=== PATIENT | female | born 1945 | race Caucasian/White ===

== ENCOUNTER → 2024-08-28 | Outpatient (CLI) | payer MEDICARE, OTHER, SELFPAY ==
[2024-08-28 11:28] LABS: Basophils # (Auto) 0.1 Thou/mm3 (0.0-0.2); Basophils % (Auto) 1 % (0-2.5); Eosinophils # (Auto) 0.2 Thou/mm3 (0.0-0.5); Eosinophils % (Auto) 3 % (0-10); Hematocrit 41.6 % (36.0-46.0); Hemoglobin 13.6 g/dL (12.0-16.0); Immature Granulocytes % (Auto) 0 % (0-0); Immature Granulocytes Auto 0.04 Thou/mm3 (0.00-0.00); Lymphocytes # (Auto) 1.5 Thou/mm3 (1.0-4.8); Lymphocytes % (Auto) 15 % (10-50); Mean Corpuscular HGB Conc 32.7 g/dl (31.0-37.0); Mean Corpuscular Hemoglobin 30.4 pg (25.0-35.0); Mean Corpuscular Volume 93 fL (80-100); Monocytes # (Auto) 0.8 Thou/mm3 (0.0-0.8); Monocytes % (Auto) 8 % (0-12); Neutrophils % (Auto) 74 % (37-80); Nucleated Red Blood Cell % 0 /100 WBC (0); Platelet Count 230 Thou/mm3 (140-440); RDW Standard Deviation 44.4 fL (36.4-46.3); Red Blood Count 4.47 Miln/mm3 (4.00-5.20); White Blood Count 9.6 Thou/mm3 (3.6-11.0)
[2024-08-28 11:46] LABS: Vitamin D 25 Hydroxy Total 44.3 ng/mL (7.3-40.2)
[2024-08-28 12:16] LABS: Alanine Aminotransferase 23 U/L (10-49); Albumin, Serum 4.5 gm/dL (3.4-4.8); Albumin/Globulin Ratio 2.1 (1.2-2.2); Alkaline Phosphatase 131 U/L (46-116); Anion Gap 8 (7-16); Aspartate Amino Transferase 20 U/L (0-34); BUN/Creatinine Ratio 14 Ratio (12-20); Blood Urea Nitrogen 15 mg/dL (9-23); Calcium 10.8 mg/dL (8.3-10.6); Calcium (Corrected) 10.8 mg/dL (8.5-10.1); Carbon Dioxide 29.6 mMol/L (20.0-31.0); Chloride 105 mMol/L (98-107); Creatinine (Component) 1.1 mg/dL (0.6-1.3); Free T4 (Free Thyroxine) 1.03 ng/dL (0.89-1.76); Globulin 2.1 gm/dL (2.3-3.5); Glucose 112 mg/dL (74-106); Osmolality,Calculated 286 (275-295); Potassium 4.7 mMol/L (3.4-5.1); Sodium 143 mMol/L (136-145); Thyroid Stimulating Hormone 3.05 uIU/mL (0.55-4.78); Total Protein 6.6 gm/dL (5.7-8.2); eGFR 52 See Note
[2024-08-28 14:27] LABS: Glucose Estimated Average 105 mg/dL (80-131); Hemoglobin A1C 5.3 % Hgb (4.8-6.0)
[2024-08-28 15:18] LABS: Cardiac Risk Estimate 2.1 RATIO (3.7-5.6); Cholesterol 116 mg/dL (132-200); HDL Cholesterol 54 mg/dL (40-60); LDL Cholesterol,Calculated 34 mg/dL (0-130); Triglycerides 138 mg/dL (30-150); Uric Acid 6.8 mg/dL (3.1-7.8)
== END | disposition home or self-care (01) ==
LOC: COPL 10:20
PROVIDERS: PCP Internal Medicine; Referring Provider Internal Medicine; Visit Provider Internal Medicine
DX: I11.0 Hypertensive heart disease with heart failure (principal); E11.9 Type 2 diabetes mellitus without complications; E55.9 Vitamin D deficiency, unspecified; E78.2 Mixed hyperlipidemia; E03.9 Hypothyroidism, unspecified
CPT/HCPCS: 36415; 80053; 80061; 82306; 83036; 84439; 84443; 84550; 85025

== ENCOUNTER 2024-11-12 23:18 | Inpatient (IN) | payer MEDICARE, OTHER, SELFPAY ==
[2024-11-12 23:19] VITALS: BMI 34.3
--- NOTE | 2024-11-12 23:21 | EKG_ITS ---
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
[2024-11-12 23:42] VITALS: BP 164/89; PULSE 92; RESP 20; TEMP 37.4; O2SAT 93
[2024-11-13] VITALS (15 sets, daily range): BP systolic 134–207; BP diastolic 78–117; PULSE 84–110; RESP 16–98; TEMP 36.7–38.5; O2SAT 94–98
--- NOTE | 2024-11-13 | XR_ITS ---
Examinations: MRI Brain without intravenous contrast. MRA brain without intravenous contrast. MRA carotids without intravenous contrast 3-D vascular reconstructions Date and time of exam: November 13, 2024 1003 hours INDICATIONS: Onset slurred speech facial numbness beginning today Technique: Multiple axial and sagittal images of the brain have been obtained MRA brain carotid images without contrast obtained, including 3-D postprocessing, vascular maximum intensity projection images Findings: Sellaturcica is not enlarged. The optic chiasm and infundibular stalk are not remarkable. Prepontine and interpeduncular cisterns are not enlarged. No localized enlargement of the medulla or chris. Fourth ventricle and cerebellar tonsils normal in position. Subacute hemorrhage is not seen. Fourth ventricle is midline. Mass in the cerebellopontine angle region is not evident. 7th and 8th nerve complexes exhibits symmetry. Globes are symmetrical with no retro-orbital mass. Increased white matter signal prominent Diffusion-weighted images demonstrate no focus of restricted diffusion Mass-effect upon the ventricular system is not identified. MRA carotid images degraded by patient motion. MRA brain images no large vessel occlusions Impression: Negative for acute hemorrhage mass effect or midline shift Old infarct right caudate nucleus Prominent chronic microvascular white matter change No acute infarct
--- NOTE | 2024-11-13 00:12 | XR_ITS ---
Examination: CT brain head without contrast. 2-D sagittal coronal reconstructions Date and time of exam:16,025 at 0109 hrs. Comparison: May 24, 2021 Indication: Dizziness shortness of breath unsteady gait today CTDI: vol (mGy):44.2 DLP: (mGycm):887 Technique: Multiple CT axial sections of the brain have been obtained, 5 mm slice thickness. Contrast has not been administered. 2-D sagittal, coronal reconstructions have been obtained Low dose protocols were performed. One or more of the following dose reduction techniques were used; automated exposure control, adjustment of the mA and/or KV according to patient size, use of iterative reconstruction technique. Findings: No significant ventricular enlargement. Intra-axial or extra-axial hemorrhage density is not seen. No mass effect or midline shift Basal cisterns are not remarkable. Fourth ventricle is midline. Cranial vault intact. Impression: Negative for acute hemorrhage, mass effect or midline shift Consider brain MRI MRA without contrast, stroke protocol, follow-up
--- NOTE | 2024-11-13 00:12 | XR_ITS ---
Examination: PA chest single view TECHNIQUE: Upright PA chest single view Exam date and time: November 13, 2024 at 0034 hours INDICATIONS: Coughing several days. FINDINGS: Normal heart size The lungs are clear. The osseous structures are intact IMPRESSION: No active disease
--- NOTE | 2024-11-13 00:14 | PD.EDRME ---
Rapid Medical Screening Exam [facility] Arrival date/time: 11/12/24 23:18 79F with history of CVA (2014; residual L-sided weakness) and HTN presents to ED with several days of cough and SOB. Today, patient took some promethazine for cough and felt increased dizziness and facial flushing. Patient states symptoms are getting better. Patient also states this feels different than when she had her CVA. Chief Complaint: Dizziness Vital signs: Vital Signs Temperature 99.4 F 11/12/24 23:42 Pulse Rate 92 11/12/24 23:42 Respiratory Rate 20 11/12/24 23:42 Blood Pressure 164/89 H 11/12/24 23:42 Pulse Oximetry (%) 93 L 11/12/24 23:42 Oxygen Delivery Method Room Air 11/12/24 23:42
--- NOTE | 2024-11-13 00:52 | PD.EDDIZZY ---
ED Dizzyness RME/HPI General Chief Complaint: Dizziness Stated Complaint: COUGH/DIZZINESS/ SOB Time Seen by Provider: 11/13/24 00:46 Arrival date/time: 11/12/24 23:18 RME / HPI RME / HPI Narrative: 11/12/24 23:18 79F with history of CVA (2014; residual L-sided weakness) and HTN presents to ED with several days of cough and SOB. Today, patient took some promethazine for cough and felt increased dizziness and facial flushing. Patient states symptoms are getting better. Patient also states this feels different than when she had her CVA. Dr. Espinoza?s Main ED Evaluation: 79yo female with a history of CVA w/ residual left-sided weakness, HTN, HLD presents to the ED for a cheief complaint of a cough x Sunday. Patient states she's had a cough since Sunday, reporting she took promethazine. She states that after she took it, she started having facial numbness and dizziness. Patient denies any chest pain, shortness of breath, N/V/D or any other associated symptoms. Son at bedside notes the patient started having slurred speech, but is not sure if it is due to the patient having another stroke or if it's due to her being sleepy. Related Data Home Medications ?Medication ?Instructions ?Recorded ?Confirmed acetaminophen 325 mg tablet 650 mg PO Q12H Arthritis 10/13/21 10/17/21 (Tylenol) allopurinol 100 mg tablet 100 mg PO QDAY 10/13/21 10/17/21 amlodipine 5 mg tablet 5 mg PO QDAY 10/13/21 10/17/21 aspirin 81 mg tablet,delayed 81 mg PO DAILY 10/13/21 10/17/21 release atorvastatin 20 mg tablet 20 mg PO QPM 10/13/21 10/17/21 benazepril 20 mg tablet 20 mg PO QDAY 10/13/21 10/17/21 duloxetine 60 mg capsule,delayed 60 mg PO QDAY 10/13/21 10/17/21 release metoprolol succinate 100 mg 100 mg PO QDAY 10/13/21 10/17/21 tablet,extended release 24 hr famotidine 20 mg tablet 20 mg PO QDAY 10/17/21 10/17/21 Allergies Allergy/AdvReac Type Severity Reaction Status Date / Time No Known Allergies Allergy Verified 10/17/21 07:38 Review of Systems Review of Systems Systems Reviewed: All systems reviewed, normal except as documented Past Medical History Past Medical History CARDIAC: Positive Cardiac Disorders, Cardiac Arrhythmia (skipping a beat), Atrial Fibrillation, Hypercholesterolemia and Hypertension; Negative Congestive Heart Failure RESPIRATORY: Positive Bronchitis (x 1 month); Negative Chronic Obstructive Pulmonary Disease (COPD) GASTROINTESTINAL: Negative Gastrointestinal Disorders GENITOURINARY: Negative Genitourinary Disorders or Renal Disease REPRODUCTIVE: Positive Previous Pregnancies MUSCULOSKELETAL: Positive Arthritis and Fractures (tail bone FX) ENDOCRINE: Negative Endocrine Disorders, Diabetes Mellitus Type 1 or Diabetes Mellitus Type 2 HEMATOLOGIC: Negative Blood Disorders PSYCHO/SOCIAL: Positive Depression and Anxiety OTHER HISTORY: Positive Falls, Radiation Therapy (nose carsinoma) and Cancer (nose basal cell carsinoma); Negative Autoimmune Disease Family History FAMILY HISTORY: Positive Family Cardiac Disorders (Dad), Family Cancer (mother) and Family Surgery; Negative Family Psychiatric Problems, Family Respiratory Disorders, Family Gastrointestinal Problems or Family Anesthesia Reaction Surgical History SURGICAL: Positive Nose Surgery Social History SMOKING STATUS: Never smoker ED Exam Narrative Physical exam: GENERAL APPEARANCE: alert and oriented x 4, well-developed, well-nourished, no acute distress VITALS: All vitals were reviewed and the pulse ox is 93% on room air, which is normal according to my interpretation. HEENT: Normocephalic, atraumatic; pupils equal, round, reactive to light; EOMI; mucous membranes pink, moist; oropharynx clear NECK: Supple LUNGS: CTABL; no wheezes, no rales, no rhonchi HEART: Regular rate, regular rhythm; normal S1, S2; no murmurs ABDOMEN: non distended; normal BS; soft, no tenderness, no guarding, no rebound; no masses, no organomegaly, no hernia BACK: no CVA tenderness EXTREMITIES: atraumatic; no edema NEUROLOGIC: awake; alert and oriented x4; cranial nerves II-XII grossly intact; no focal sensory or motor deficits; LUE drift; mild dysarthria PSYCHIATRIC: appropriate mood and affect SKIN: warm, dry, normal color; no rashes Course Course Course Narrative: 0139: Stroke alert initiated. Quality Measures none Orders Category Date Time Status Bedside Blood Glucose NOW Care 11/13/24 01:44 Active Bedside COVID-19 Antigen Test NOW Care 11/13/24 00:12 Active Bedside Influenza A&B Antigen Test NOW Care 11/12/24 23:45 Completed Foot Cutter NOW Care 11/13/24 01:44 Active Continuous Pulse Oximetry NOW Care 11/13/24 01:44 Completed EKG (ED ONLY) *Do not use* NOW Care 11/12/24 23:21 Completed In and Out Catheter NEEDED Care 11/13/24 01:44 Active Insert IV NOW Care 11/13/24 01:44 Active NIH Stroke Scale now Care 11/13/24 01:44 Active NPO NOW Care 11/13/24 01:44 Active Neuro Check Q1HR Care 11/13/24 01:44 Active Nurse Swallow Screen x1 Care 11/13/24 01:44 Active Consult to Neurology / Tele-Neurology Routine Cons 11/13/24 01:[address] angio stroke protocol Stat Exams 11/13/24 01:[address] head/brain wo con Stat Exams 11/13/24 00:12 Taken EKG (ED Only) Stat Exams 11/12/24 23:21 Draft XR chest 1V portable Stat Exams 11/13/24 00:12 Taken B-Type Natriuretic Peptide Stat Lab 11/13/24 00:48 Completed CBC Stat Lab 11/13/24 00:48 Completed Comprehensive Metabolic Panel Stat Lab 11/13/24 00:48 Completed Drug Screen,Urine Stat Lab 11/13/24 01:44 Ordered Magnesium Stat Lab 11/13/24 00:48 Completed Partial Thromboplastin Time Stat Lab 11/13/24 00:48 Received Prothrombin Time with INR Stat Lab 11/13/24 00:48 Received Troponin I Stat Lab 11/13/24 00:48 Completed Urinalysis Stat Lab 11/13/24 00:45 Completed Urine Culture Stat Lab 11/13/24 01:44 Ordered cefTRIAXone [Rocephin] 1,000 mg Med 11/13/24 01:48 Discontinued SODIUM CHLORIDE 0.9% (Popper) [Ns 0.9% (P)] 50 ml IV X1 hydrALAZINE INJ [Apresoline Inj] Med 11/13/24 01:47 Discontinued 10 mg IV X1 ONE Vital Signs Vital signs: Vital Signs Temperature 99.4 F 11/12/24 23:42 Pulse Rate 92 11/12/24 23:42 Respiratory Rate 20 11/12/24 23:42 Blood Pressure 164/89 H 11/12/24 23:42 Pulse Oximetry (%) 93 L 11/12/24 23:42 Oxygen Delivery Method Room Air 11/12/24 23:42 Dizziness MDM Narrative [facility] Narrative:: Scribe Attestation: 11/13/24 Emilie Galvan am scribing for and in the presence of Dr. Espinoza. Patient data External records reviewed:: [facility] previous records (Per chart review, patient has no relevant previous ED visits.) Clinical information provided by:: patient Social determinants that could affect healthcare access:: none Patient has the following chronic illnesses:: aFib, HTN How is presenting disease/condition affected by chronic disease/condition?: caused by Evaluation data The following diagnostics were reviewed and interpreted by me:: lab results, radiology exam(s) and EKG tracing(s) Lab and/or radiology exams considered but not ordered:: none Interpretation Summary: Bedside COVID and Influenza are negative, CBC is normal, CMP is normal, UA is unremarkable, according to my interpretation. CXR shows normal cardiac silhouette, normal sharp diaphragmatic edge, no infiltrates, normal costophrenic angles, according to my interpretation. EKG done at 2340, NSR, rate of 92, left axis deviation, no ectopy, LVH, generalized ST abnormalities, no STEMI, according to my interpretation. CT scan of the head without intravenous contrast (axial sections with sagittal and coronal reformats) November 13, 2024 0109 hours Clinical history: Dizziness. No prior study is available for comparison. Findings: There is no evidence of intracranial hemorrhage, mass effect or midline shift. There is an old lacunar infarct in the right basal ganglia. There are periventricular white matter hypodensities, compatible with chronic small vessel ischemia. The CSF spaces are prominent consistent with volume loss. There is atheromatous calcification of the intracranial arteries. The calvarium is unremarkable. The mastoid air cells and the visualized paranasal sinuses are clear. Impression: No evidence of intracranial hemorrhage, mass effect or midline shift. Periventricular chronic small vessel ischemia, chronic infarct and volume loss. Other findings as described above. This report has been electronically signed by: Macho Serra MD. Medications / Prescriptions Medications or Prescriptions considered but not ordered:: none Medication administrations:: Medication Administration History Discontinued Medications Hydralazine HCl (Hydralazine Inj 20 Mg/Ml Vial) 10 mg IV X1 ONE Stop: 11/13/24 01:48 Last Admin: 11/13/24 02:22 Dose: 10 mg Documented By: BESSY Ceftriaxone Sodium 1,000 mg/ (Sodium Chloride) 50 mls @ 100 mls/hr IV X1 ONE Stop: 11/13/24 02:17 Last Admin: 11/13/24 02:43 Dose: 100 mls/hr Documented By: ESTRELLITA see above Consultations Consultation(s) initiated? (list below): Yes Consultation #1 (Physician, Specialty, Details): Discussed case with [Dr. Ruvalcaba] from [teleneurology] regarding [consultation]. Discussed patients ED course, exam findings, labs, and radiology results. Does not feel the patient's symptoms are due to a stroke, therefore, patient is not a tPA candidate. Does recommend MRI to determine etiology of dysarthria. Time: 02:12 Consultation #2 (Physician, Specialty, Details): Discussed case with [Dr. Forbes, attending Dr. Moore] from Hospitalist service regarding admission. Discussed patients ED course, exam findings, labs, and radiology results. The Hospitalist [agrees] to accept the patient for admission. Time: 03:05 Diagnosis Dizziness Differential Diagnosis: other (adverse medication reaction, anxiety reaction, CVA, TIA, akasthisia) Most likely diagnosis given after review of the tests above:: see below Admission Indicated Admission indicated?: indicated Admission Request Was there a request for admission?: Yes Admission Attestation Admission request attestation: Discussed case with [] from Hospitalist service regarding admission. Discussed patients ED course, exam findings, labs, and radiology results. The Hospitalist [agrees,declines] to accept the patient for admission. Disposition Plan Disposition Plan: Admit Critical Care Time Critical Care Time Critical Care Time: Yes Total Critical Care Time (min.): 50 Attestation: The high probability of sudden, clinically significant deterioration in the patient?s condition required the highest level of my preparedness to intervene urgently. The services I provided to this patient were to treat and/or prevent clinically significant deterioration. Services included the following: chart data review, reviewing nursing notes and/or old charts, documentation time, instructional consultant collaboration regarding findings and treatment options, medication orders and management, direct patient care, vital sign assessments and ordering, interpreting and reviewing diagnostic studies and lab tests. Aggregate critical care time includes only time during which I was engaged in work directly related to the patient?s care, as described above, whether at bedside or elsewhere in the Emergency Department. It did not include time spent performing other reported procedures or the services of residents, students, nurses or physician assistants. Discharge Plan Plan Patient Disposition: Admit Acute Care w/in Hospital Prescriptions/Referrals Prescriptions/Med Rec: No Action acetaminophen [Tylenol] 325 mg Tablet 650 mg PO Q12H atorvastatin 20 mg Tablet 20 mg PO QPM metoprolol succinate 100 mg Tablet Extended Release 24 Hr 100 mg PO QDAY amlodipine 5 mg Tablet 5 mg PO QDAY allopurinol 100 mg Tablet 100 mg PO QDAY aspirin 81 mg Tablet,Delayed Release (Dr/Ec) 81 mg PO DAILY benazepril 20 mg Tablet 20 mg PO QDAY duloxetine 60 mg Capsule,Delayed Release(Dr/Ec) 60 mg PO QDAY famotidine 20 mg Tablet 20 mg PO QDAY Referrals: Temporary Provider,ED [Physician] - In 1 week Problem List Clinical Impression: Acute UTI, Hypertensive urgency, Acute CVA (cerebrovascular accident) Patient/Caregiver Discharge Instructions Print Language: Finnish Stand Alone Forms: Julienne Award Info., Patient Portal Info Letter
[2024-11-13 00:56] LABS: Collection Type, Urine Clean Catch
[2024-11-13 01:03] LABS: Basophils % (Auto) 1 % (0-2.5); Eosinophils # (Auto) 0.1 Thou/mm3 (0.0-0.5); Eosinophils % (Auto) 1 % (0-10); Hematocrit 42.3 % (36.0-46.0); Hemoglobin 14.1 g/dL (12.0-16.0); Immature Granulocytes % (Auto) 0 % (0-0); Immature Granulocytes Auto 0.01 Thou/mm3 (0.00-0.00); Lymphocytes # (Auto) 0.9 Thou/mm3 (1.0-4.8); Lymphocytes % (Auto) 15 % (10-50); Mean Corpuscular HGB Conc 33.3 g/dl (31.0-37.0); Mean Corpuscular Hemoglobin 30.5 pg (25.0-35.0); Mean Corpuscular Volume 92 fL (80-100); Monocytes # (Auto) 0.9 Thou/mm3 (0.0-0.8); Monocytes % (Auto) 15 % (0-12); Neutrophils # (Auto) 4.1 Thou/mm3 (1.8-7.7); Neutrophils % (Auto) 69 % (37-80); Nucleated Red Blood Cell % 0 /100 WBC (0); Platelet Count 231 Thou/mm3 (140-440); RDW Standard Deviation 46.2 fL (36.4-46.3); Red Blood Count 4.62 Miln/mm3 (4.00-5.20)
[2024-11-13 01:22] LABS: B-Type Natriuretic Peptide 90 pg/mL (0-100)
[2024-11-13 01:23] LABS: Alanine Aminotransferase 23 U/L (10-49); Albumin, Serum 5.2 gm/dL (3.4-4.8); Albumin/Globulin Ratio 2.3 (1.2-2.2); Alkaline Phosphatase 139 U/L (46-116); Anion Gap 10 (7-16); Aspartate Amino Transferase 26 U/L (0-34); BUN/Creatinine Ratio 13 Ratio (12-20); Bilirubin,Total 0.7 mg/dL (0.3-1.2); Blood Urea Nitrogen 15 mg/dL (9-23); Calcium 10.6 mg/dL (8.3-10.6); Calcium (Corrected) 10.6 mg/dL (8.5-10.1); Carbon Dioxide 26.1 mMol/L (20.0-31.0); Chloride 105 mMol/L (98-107); Creatinine (Component) 1.2 mg/dL (0.6-1.3); Estimated Creatinine Clearance 42.2 mL/min (>60); Globulin 2.3 gm/dL (2.3-3.5); Glucose 93 mg/dL (74-106); Magnesium 1.8 mg/dL (1.6-2.6); Osmolality,Calculated 282 (275-295); Potassium 3.8 mMol/L (3.4-5.1); Sodium 141 mMol/L (136-145); Total Protein 7.5 gm/dL (5.7-8.2); Troponin I < 0.020 ng/mL (0.0-0.045); eGFR 46 See Note
[2024-11-13 01:30] LABS: Bacteria,Urine Rare; Bilirubin,Urine Negative (Negative); Blood,Urine Negative (Negative); Clarity,Urine Turbid (Clear/Hazy); Color,Urine Yellow (Lt Yel-Yel); Glucose, Urine Negative (Negative); Hyaline Casts,Urine < 1 /hpf (0-1); Ketones,Urine Trace (Negative); Leukocyte Esterase,Urine Positive (Negative); Nitrite,Urine Negative (Negative); Protein,Urine 2+ (Neg - Trace); RBC,Urine 7 /hpf (0-3); Specific Gravity,Urine 1.031 (1.001-1.035); Squamous Epithelial Cell,Urine 10 /hpf (0-5); WBC,Urine 13 /hpf (0-5)
--- NOTE | 2024-11-13 01:40 | PC.LAC ---
stroke consult Case # [id number]
--- NOTE | 2024-11-13 01:44 | XR_ITS ---
Examination: CTA carotids with intravenous contrast CTA brain, head with intravenous contrast. 2-D sagittal, coronal reconstructions. 3-D reconstructions. Exam date and time: 12/14/2024 0200 hrs. Indications: Dizziness difficulty walking ataxia beginning 5 days ago CTDI: vol (mGy) 11 DLP: (mGycm) 442 Technique: Multiple CTA axial brain, head carotid images post intravenous contrast injection 75 cc, [id number]. 2-D sagittal, coronal reconstructions. 3-D reconstructions, 3-D post processing including vascular maximum intensity projection images. Low dose protocols were performed. One or more of the following dose reduction techniques were used; automated exposure control, adjustment of the mA and/or KV according to patient size, use of iterative reconstruction technique. Findings: Bilateral thyroid nodules, the largest right thyroid 9 mm Partially fluid distended esophagus No thoracic aortic aneurysmal dilatation No filling defects in the visualized pulmonary arteries No significant common carotid carotid bifurcation or internal carotid artery stenoses Minimally dominant right vertebral artery with no critical stenoses No cerebral large vessel arterial occlusions or thrombus Impression: No significant neck arterial stenoses No cerebral large vessel arterial occlusions or thrombus Bilateral thyroid nodules, consider correlation with thyroid sonography follow-up
--- NOTE | 2024-11-13 02:05 | PRELIM_ITS ---
CT scan of the head without intravenous contrast (axial sections with sagittal and coronal reformats) November 13, 2024 0109 hours Clinical history: Dizziness. No prior study is available for comparison. Findings: There is no evidence of intracranial hemorrhage, mass effect or midline shift. There is an old lacunar infarct in the right basal ganglia. There are periventricular white matter hypodensities, compatible with chronic small vessel ischemia. The CSF spaces are prominent consistent with volume loss. There is atheromatous calcification of the intracranial arteries. The calvarium is unremarkable. The mastoid air cells and the visualized paranasal sinuses are clear. Impression: No evidence of intracranial hemorrhage, mass effect or midline shift. Periventricular chronic small vessel ischemia, chronic infarct and volume loss. Other findings as described above. Report Electronically Signed By: Macho Serra 11/13/2024 2:04:09 AM [EST]
--- NOTE | 2024-11-13 02:18 | PD.TNEURO ---
Tele Neuro Consultation Consultation Date 11/13/24 Most Recent Vital Signs Last Vital Signs Temp 98.5 F 11/13/24 01:39 Pulse 95 11/13/24 02:12 Resp 18 11/13/24 01:39 BP 196/89 H 11/13/24 01:39 Pulse Ox 95 11/13/24 01:39 O2 Del Method Room Air 11/13/24 01:39 Consultation Narrative [facility] Tele[facility]rology Consult Services Patient Name:???Jodie Gillespie Date of :???1945 Identification Number:??? Date of Service:???11/13/2024 01:40:11 Diagnosis:?R42 - Dizziness/ Vertigo/ Giddiness Impression: ?79-year-old female presenting in consult for lightheadedness after taking promethazine. Patient is currently hypertensive. Symptoms are likely secondary to hypertension and medication use. However would recommend MRI of the brain without contrast due to reported dysarthria Our recommendations are outlined below. Recommendations: ? Stroke/Telemetry Floor ? Neuro Checks ? Bedside Swallow Eval ? DVT Prophylaxis ? IV Fluids, Normal Saline ? Head of Bed 30 Degrees ? Euglycemia and Avoid Hyperthermia (PRN Acetaminophen) ? Initiate or continue Aspirin 81 MG daily Sign Out: ? Discussed with Emergency Department Provider Advanced Imaging:CTA Head and Neck Completed. LVO:No Patient in not a candidate for ANGELICA Metrics: Last Known Well: 11/12/2024 16:00:00 Dispatch Time: 11/13/2024 01:40:11 Arrival Time: 11/12/2024 23:18:00 Initial Response Time: 11/13/2024 01:43:11Symptoms: Dizziness. Initial patient interaction: 11/13/2024 01:45:59 NIHSS Assessment Completed: 11/13/2024 01:48:41Patient is not a candidate for Thrombolytic. Thrombolytic Medical Decision: 11/13/2024 01:48:42Patient was not deemed candidate for Thrombolytic because of following reasons: LKW outside 4.5 hr window. . I personally Reviewed the CT Head and it Showed no acute intracranial abnormalities Primary Provider Notified of Diagnostic Impression and Management Plan on: 11/13/2024 02:16:42 History of Present Illness:Patient is a 79 year old Female. Patient was brought by private transportation with symptoms of Dizziness. 79-year-old female with a history of prior CVA presenting in consult for dizziness. Patient reports being sick with an upper respiratory infection for several days prior to current presentation. At approximately 1600 on 11/12/2024 she took promethazine and then developed lightheadedness and bilateral facial numbness. Family had reported dysarthria however this was not evident at the time of neurology evaluation. ? Past Medical History: ?Hyperlipidemia ?Stroke Medications: No Anticoagulant use? Antiplatelet use:?Yes?Aspirin Reviewed EMR for current medications Allergies:? Reviewed,NKDA Social History: Smoking: No Family History: There is no family history of premature cerebrovascular disease pertinent to this consultation ROS : 14 Points Review of Systems was performed and was negative except mentioned in HPI. Past Surgical History: There Is No Surgical History Contributory To Today?s Visit ? Examination: BP(204/129),?Pulse(90), 1A: Level of Consciousness - Alert; keenly responsive?+ 0 1B: Ask Month and Age - Both Questions Right?+ 0 1C: Blink Eyes & Squeeze Hands - Performs Both Tasks?+ 0 2: Test Horizontal Extraocular Movements - Normal?+ 0 3: Test Visual Brown - No Visual Loss?+ 0 4: Test Facial Palsy (Use Grimace if Obtunded) - Normal symmetry?+ 0 5A: Test Left Arm Motor Drift - No Drift for 10 Seconds?+ 0 5B: Test Right Arm Motor Drift - No Drift for 10 Seconds?+ 0 6A: Test Left Leg Motor Drift - No Drift for 5 Seconds?+ 0 6B: Test Right Leg Motor Drift - No Drift for 5 Seconds?+ 0 7: Test Limb Ataxia (FNF/Heel-Salas) - No Ataxia?+ 0 8: Test Sensation - Normal; No sensory loss?+ 0 9: Test Language/Aphasia - Normal; No aphasia?+ 0 10: Test Dysarthria - Normal?+ 0 11: Test Extinction/Inattention - No abnormality?+ 0 NIHSS Score:?0 Pre-Morbid Modified Allen Scale:4 Points = Moderately severe disability; unable to walk and attend to bodily needs without assistance Spoke with :?Dr. Espinoza This consult was conducted in real time using interactive audio and video technology. Patient was informed of the technology being used for this visit and agreed to proceed. Patient located in hospital and provider located at home/office setting. Patient is being evaluated for possible acute neurologic impairment and high probability of imminent or life-threatening deterioration. I spent total of 35 minutes providing care to this patient, including time for face to face visit via telemedicine, review of medical records, imaging studies and discussion of findings with providers, the patient and/or family. Dr Luis Ruvalcaba [facility] For Inpatient follow-up with [facility] physician please call [facility] at . As we are not an outpatient service for any post hospital discharge needs please contact the hospital for assistance. If you have any questions for the [facility] physicians or need to reconsult for clinical or diagnostic changes please contact us via [facility] at . ?
[2024-11-13] MEDS: hydrALAZINE INJ 20 MG/ML VIAL 10 MG IV (02:22)
[2024-11-13] MEDS: cefTRIAXone 1,000 MG in SODIUM CHLORIDE 0.9% (Popper) 50 ML 100 MG IV (02:43)
[2024-11-13 03:09] LABS: INR 1.1 (0.9-1.3); Partial Thromboplastin Time 27.2 Seconds (22.0-36.0); Prothrombin Time 11.5 Seconds (9.0-12.2)
--- NOTE | 2024-11-13 03:39 | PRELIM_ITS ---
CT angiogram of the head and neck with intravenous contrast (axial sections with sagittal and coronal reformats) November 13, 2024 at 0200 hours Clinical History: Focal neuro deficit, stroke suspected. Comparison: CT of November 13, 2024. Findings: Head: The internal carotid, middle and anterior cerebral arteries are patent bilaterally. The intracranial vertebral arteries are patent. The vertebrobasilar junction, basilar and posterior cerebral arteries are patent. No evidence of large vessel occlusion, critical stenosis or aneurysm. Neck: The aortic arch to the extent visualized as well as the origins of the right brachiocephalic, left common carotid, and left subclavian arteries are patent. The common carotid arteries, carotid bulbs, and internal and external carotid arteries are patent. The origins of the vertebral arteries are unremarkable. The right vertebral artery is dominant. No evidence of vascular occlusion, critical stenosis, dissection or aneurysm. The soft tissues of the neck are unremarkable. The osseous structures are unremarkable. Heterogenous thyroid with multiple hypodense nodules. Impression: Head: No evidence of large vessel occlusion, critical stenosis or aneurysm. Neck: No evidence of vascular occlusion, critical stenosis, dissection or aneurysm. Heterogenous thyroid with multiple hypodense nodules. Please, correlate with thyroid function tests and ultrasound. Report Electronically Signed By: Robinson Knowles 11/13/2024 3:38:55 AM [EST]
--- NOTE | 2024-11-13 05:13 | ESHP_ITS ---
<Statement entered by Erna Moore MD - 11/13/24 05:33> 79-year-old female with multiple comorbidities including hypertension, hyperlipidemia and previous history of ischemic CVA with unknown deficits presented to the ER with slurred speech and facial numbness. Patient states that she was at home when she took promethazine and subsequently started developing facial numbness and slurred speech which prompted a 911 call. In the ER, patient underwent stroke workup including CT head which was negative for any acute intracranial abnormality and teleneurology was consulted who did not recommend tPA however recommended admission for stroke workup. As a result, plan to admit the patient, aspirin, Lipitor, MRI and echocardiogram.I reviewed above note and agree with findings and plans. I have also personally examined the patient with medicine team and went over assessment and plan with medical team including international marketing intern and resident physician. Documentation for date of: 11/13/24 HPI History of Present Illness Chief complaint: Facial numbness and slurred speech for 1 day History of present illness: HPI: A 79-year-old female patient with past medical history of CVA in 2014, hypertension, came to the ED after she experienced numbness on her face associated with difficulty finding words and dizziness. Patient reported that since Sunday this week she started to have congestion, cough, runny nose since that time her symptoms persisted however yesterday morning patient found that she has promethazine at home and her fridge that has been started for the last year she decided to take 1 teaspoon of the syrup. Soon after she took the syrup she started to experience numbness that started in her forehead and worsened to include her whole face. She mentions that she became also generally weak and also became dizzy and was not able to walk. She called her grandson who came and picked her up and brought her to the hospital. As per the ED note her son reported that he noticed that her slurred speech and difficulty finding words seems to be something new and does not seem to be the residual deficit from her previous stroke. Patient denied any tinnitus, drooling of saliva, difficulty swallowing, or focal weakness. ED course: At the ED patient was noticed to have blood pressure 164/89, pulse rate of 92, respiratory rate of 20 saturating 93 on room air. Her labs was only pertinent for serum creatinine of 1.2 with EGFR of 46, troponin and BNP was within normal limits, brain CT scan was negative for any hemorrhage or mass effect consultation to the teleneurologist he recommended to admit the patient for stroke workup as the son reported that she has worsening of her slurred speech. His evaluation found the patient is having NIHSS of 0. EKG did not show any arrhythmia or ischemic changes. PMH: As above PSX: Bilateral total knee replacement PFX: Lives alone Social hx: Alcohol: Last drink was 5 years ago Tobacco: Denied Illicit drugs: Denied Allergies: No known allergies Review of Systems Review of Systems Systems Reviewed: All systems reviewed, normal except as documented Exam Vital Signs Temp Pulse Resp BP Pulse Ox O2 Del Method 98.8 F 94 16 185/88 H 98 Room Air 11/13/24 03:48 11/13/24 05:08 11/13/24 05:08 11/13/24 03:48 11/13/24 03:48 11/13/24 03:48 Results: Labs 11/13/24 00:48 11/13/24 00:48 Labs: Short CBC 11/13/24 Range/Units 00:48 WBC 6.0 (3.6-11.0) Thou/mm3 Hgb 14.1 (12.0-16.0) g/dL Hct 42.3 (36.0-46.0) % Plt Count 231 (140-440) Thou/mm3 BMP 11/13/24 00:48 Sodium 141 Potassium 3.8 Chloride 105 Carbon Dioxide 26.1 BUN 15 Creatinine 1.2 Glucose 93 Calcium 10.6 Cardiac Enzymes 11/13/24 Range/Units 00:48 Troponin I < 0.020 (0.0-0.045) ng/mL Liver Function 11/13/24 Range/Units 00:48 Total Bilirubin 0.7 (0.3-1.2) mg/dL AST 26 (0-34) U/L ALT 23 (10-49) U/L Alkaline Phosphatase 139 H (46-116) U/L Albumin 5.2 H (3.4-4.8) gm/dL Urine 11/13/24 Range/Units 00:45 Urine Color Yellow (Lt Yel-Yel) Urine Clarity Turbid A (Clear/Hazy) Urine pH 6.0 (5.0-7.0) Ur Specific [place] 1.031 (1.001-1.035) Urine Protein 2+ A (Neg - Trace) Urine Glucose (UA) Negative (Negative) Quality Measures Quality Measures none Advance care planning discussed with:: patient Medications Home Medications and Allergies Home Medications ?Medication ?Instructions ?Recorded ?Confirmed ?Type acetaminophen 325 mg tablet 650 mg PO Q12H Arthritis 0 10/13/21 10/17/21 History (Tylenol) allopurinol 100 mg tablet 100 mg PO QDAY 10/13/2103/31 History amlodipine 5 mg tablet 5 mg PO QDAY 10/13/21 History aspirin 81 mg tablet,delayed 81 mg PO DAILY 10/13/21 0 10/17/21 History release atorvastatin 20 mg tablet 20 mg PO QPM 10/13/21 History benazepril 20 mg tablet 20 mg PO QDAY 10/13/2110/17 History duloxetine 60 mg capsule,delayed 60 mg PO QDAY 2 10/17/21 History release metoprolol succinate 100 mg 100 mg PO QDAY 10/13/21 History tablet,extended release 24 hr famotidine 20 mg tablet 20 mg PO QDAY 10/17/2110/17 History Allergies Allergy/AdvReac Type Severity Reaction Status Date / Time No Known Allergies Allergy Verified 10/17/21 07:38 Visit Medications Acetaminophen (Acetaminophen 325 Mg Tablet) 650 mg PO Q6H PRN PRN Reason: Fever >101.5 Stop: 12/13/24 04:55 Aspirin (Aspirin Ec 81 Mg Tabec) 81 mg PO QDAY GEORGINA Stop: 12/13/24 08:59 Atorvastatin Calcium (Atorvastatin Calcium 20 Mg Tablet) 40 mg PO HS GEORGINA Stop: 12/13/24 20:59 Heparin Sodium (Porcine) (Heparin Sod Inj 5000 Unit/Ml Vial) 5,000 unit SC Q8HR GEORGINA Stop: 11/27/24 05:59 Sodium Chloride (Ns) 1,000 mls @ 100 mls/hr IV .Q10H GEORGINA Stop: 11/13/24 15:07 Magnesium Sulfate (Magnesium Sulfate Ivpb) 2 gm in 50 mls @ 25 mls/hr IV X1 ONE Stop: 11/13/24 07:10 Labetalol HCl (Labetalol Inj 5 Mg/Ml Vial 20 Ml) 10 mg IVP Q2H PRN PRN Reason: SBP >220mmHg Stop: 12/14/24 05:02 Ondansetron HCl (Ondansetron Inj 2 Mg/Ml Inj 2 Ml) 4 mg IV Q6H PRN; Protocol PRN Reason: NAUSEA OR VOMITING Stop: 12/13/24 04:55 Oxycodone/Acetaminophen (Oxycodone/Apap 5/325 Tablet) 1 tab PO Q6H PRN PRN Reason: PAIN SCALE 4-6 (Moderate Stop: 11/18/24 04:55 Pantoprazole Sodium (Pantoprazole Inj 40 Mg Vial) 40 mg IVP QDAY GEORGINA Stop: 12/13/24 08:59 Discontinued Medications Hydralazine HCl (Hydralazine Inj 20 Mg/Ml Vial) 10 mg IV X1 ONE Stop: 11/13/24 01:48 Last Admin: 11/13/24 02:22 Dose: 10 mg Ceftriaxone Sodium 1,000 mg/ (Sodium Chloride) 50 mls @ 100 mls/hr IV X1 ONE Stop: 11/13/24 02:17 Last Infusion: 11/13/24 03:13 Dose: Infused Assessment & Plan Plan Summary:A 79-year-old female patient with past medical history of CVA in 2014, hypertension, came to the ED after she experienced numbness on her face associated with difficulty finding words and dizziness after she took a teaspoon of promethazine. Patient was admitted for stroke rule out. Assessment and plan #Ischemic stroke rule out #Medication side effect #History of CVA in 2014 complicated by recurrent falls since that time Brain CT scan was negative for any hemorrhage or mass effect consultation to the teleneurologist he recommended to admit the patient for stroke workup as the son reported that she has worsening of her slurred speech. His evaluation found the patient is having NIHSS of 0. EKG did not show any arrhythmia or ischemic changes. Plan ? Admit patient to telemetry ? Consult neurologist Dr Guadarrama ? Start the patient on aspirin 81 mg p.o. daily ? Start the patient on atorvastatin 40 mg p.o. at bedtime ? Referral for physical therapy evaluation ? Nursing swallow eval ? Resume patient cardiac diet if passed swallow eval ? Speech eval ? MRI stroke protocol ?HOB more than 30 degree every shift ? Neurochecks every 4 hours ? Seizures precautions ? Hold all home medications ? Continue permissive hypertension ? Avoid hyperthermia, give Tylenol as needed #History of hypertension Plan ? Labetalol 10 mg every 2 hours as needed if SBP more than 220 mmHg for 24 hours ? Consider resuming home medications for blood pressure ? Consider putting the patient on as needed IV blood pressure medications after 24 hours Hospital Maintenance: FEN: Cardiac diet after she passed nursing swallow eval DVT ppx: Heparin subcu GI ppx: Protonix IV lines: PIV Ch[place]al: None Code status: Full code Dispo: Telemetry - Patient's plan and care discussed with my attending, Dr. Teresa Forbes MD Internal Medicine PGY-2
[2024-11-13] MEDS: Magnesium Sulfate 2 GM Ivpb 2 GM/50 ML BAG IV (05:37)
[2024-11-13 05:41] LABS: Basophils # (Auto) 0.1 Thou/mm3 (0.0-0.2); Basophils % (Auto) 1 % (0-2.5); Eosinophils % (Auto) 1 % (0-10); Hematocrit 38.4 % (36.0-46.0); Hemoglobin 13.1 g/dL (12.0-16.0); Immature Granulocytes % (Auto) 0 % (0-0); Immature Granulocytes Auto 0.02 Thou/mm3 (0.00-0.00); Lymphocytes % (Auto) 19 % (10-50); Mean Corpuscular HGB Conc 34.1 g/dl (31.0-37.0); Mean Corpuscular Hemoglobin 30.5 pg (25.0-35.0); Mean Corpuscular Volume 90 fL (80-100); Monocytes % (Auto) 19 % (0-12); Neutrophils # (Auto) 3.2 Thou/mm3 (1.8-7.7); Neutrophils % (Auto) 60 % (37-80); Nucleated Red Blood Cell % 0 /100 WBC (0); Platelet Count 162 Thou/mm3 (140-440); RDW Standard Deviation 44.5 fL (36.4-46.3); Red Blood Count 4.29 Miln/mm3 (4.00-5.20); White Blood Count 5.4 Thou/mm3 (3.6-11.0)
[2024-11-13 06:17] LABS: Alanine Aminotransferase 19 U/L (10-49); Albumin, Serum 4.3 gm/dL (3.4-4.8); Alkaline Phosphatase 121 U/L (46-116); Anion Gap 9 (7-16); Aspartate Amino Transferase 21 U/L (0-34); BUN/Creatinine Ratio 14 Ratio (12-20); Bilirubin,Total 0.5 mg/dL (0.3-1.2); Blood Urea Nitrogen 14 mg/dL (9-23); Calcium 9.8 mg/dL (8.3-10.6); Calcium (Corrected) 9.8 mg/dL (8.5-10.1); Carbon Dioxide 25.3 mMol/L (20.0-31.0); Cardiac Risk Estimate 1.8 RATIO (3.7-5.6); Chloride 106 mMol/L (98-107); Cholesterol 86 mg/dL (132-200); Estimated Creatinine Clearance 50.6 mL/min (>60); Globulin 2.2 gm/dL (2.3-3.5); Glucose 89 mg/dL (74-106); HDL Cholesterol 48 mg/dL (40-60); LDL Cholesterol,Calculated 24 mg/dL (0-130); Magnesium 1.8 mg/dL (1.6-2.6); Osmolality,Calculated 278 (275-295); Potassium 3.6 mMol/L (3.4-5.1); Sodium 140 mMol/L (136-145); Thyroid Stimulating Hormone 1.73 uIU/mL (0.55-4.78); Total Protein 6.5 gm/dL (5.7-8.2); Triglycerides 68 mg/dL (30-150); eGFR 58 See Note
[2024-11-13] MEDS: SODIUM CHLORIDE 0.9% 1000 ML 1,000 ML 100 ML IV (06:27)
[2024-11-13] MEDS: HEPARIN SOD INJ 5000 UNIT/ML VIAL SC ×3 (06:28→22:00)
--- NOTE | 2024-11-13 10:35 | ECHO_ITS ---
Transthoracic Echo Report Ht (in): 64 Wt (lb): 200 Exam Location: [facility] Status: Inpatient Link Knitting Machine Operator: FRANCISCO Hebert^^^^ Indications: Procedure Performed: BP: 131 / 76 HR: 87 Technical Quality: Fair MEASUREMENTS (Male / Female) Normal Values 2D ECHO LV Diastolic Diameter PLAX 4.1 cm 4.2 - 5.9 / 3.9 - 5.3 cm LV Systolic Diameter PLAX 2.6 cm IVS Diastolic Thickness 1.1 cm 0.6 - 1.0 / 0.6 - 0.9 cm LVPW Diastolic Thickness 1.0 cm 0.6 - 1.0 / 0.6 - 0.9 cm LV Relative Wall Thickness 0.5 LVOT Diameter 1.5 cm Aortic Root Diameter 2.5 cm LA Systolic Diameter LX 3.4 cm 3.0 - 4.0 / 2.7 - 3.8 cm LV Ejection Fraction MOD BP 64.1 % >= 55 % LV Cardiac Index MOD BP 1506.3 cm?/min?m? LV Ejection Fraction MOD 4C 62.3 % LV Cardiac Index MOD 4C 1557.0 cm?/min?m? LV Ejection Fraction 4C AL 63.2 % LV Cardiac Index 4C AL 1594.6 cm?/min?m? LV Ejection Fraction MOD 2C 64.2 % LV Cardiac Index MOD 2C 1286.9 cm?/min?m? LV Ejection Fraction 2C AL 65.6 % LV Cardiac Index 2C AL 1345.4 cm?/min?m? LA Volume Index 21.7 cm?/m? 16 - 28 cm?/m? DOPPLER AV Peak Velocity 151.5 cm/s AV Peak Gradient 9.2 mmHg AV Mean Gradient 6.0 mmHg AV Velocity Time Integral 34.8 cm AI Peak Velocity 164.0 cm/s AI Peak Gradient 10.8 mmHg AI Pressure Half Time 627.0 ms LVOT Peak Velocity 128.0 cm/s LVOT Peak Gradient 6.6 mmHg LVOT Velocity Time Integral 28.6 cm LVOT Cardiac Index 2132.5 cm?/min?m? AV Area Cont Eq vti 1.5 cm? AV Area Cont Eq pk 1.5 cm? MV Area PHT 3.6 cm? MR Peak Velocity 350.0 cm/s MR Peak Gradient 49.0 mmHg Mitral E Point Velocity 102.0 cm/s Mitral A Point Velocity 111.0 cm/s Mitral E to A Ratio 0.9 LV E' Lateral Velocity 8.7 cm/s Mitral E to LV E' Lateral Ratio 11.7 LV E' Septal Velocity 6.1 cm/s Mitral E to LV E' Septal Ratio 16.7 TR Peak Velocity 230.0 cm/s TR Peak Gradient 21.2 mmHg PV Peak Velocity 136.0 cm/s PV Peak Gradient 7.4 mmHg RVOT Peak Velocity 124.0 cm/s FINDINGS Left Ventricle Normal left ventricular size, systolic function with no obvious regional wall motion abnormalities. The left ventricular wall thickness is mildly increased. There is grade I diastolic dysfunction of the left ventricle (impaired relaxation pattern). The left ventricular ejection fraction is normal, estimated at 55-60%. Right Ventricle The right ventricle is normal in size and systolic function. The estimated right ventricular systolic pressure, 22 mmHg. Left Atrium The left atrium is normal by two-dimensional, color flow and Doppler imaging with no structural abnormalities, no thrombus formation present. Right Atrium The right atrium is normal by two-dimensional imaging, color flow and Doppler imaging with no structural abnormalities, no thrombus formation present. Atrial Septum The interatrial septum is normal to color flow Doppler and agitated saline imaging. Aorta The aorta is normal by two-dimensional, color flow and Doppler interrogation. Mitral Valve Mild mitral regurgitation. Mild mitral annular calcification. Aortic Valve Trace to mild aortic valve regurgitation. Tricuspid Valve There is mild tricuspid valve regurgitation. Pulmonic Valve Trivial pulmonic valve regurgitation. Vessels The pulmonary artery appears normal. The inferior vena cava pulmonary and hepatic veins appear normal. Pericardium The pericardium is normal by two-dimensional imaging. There is no significant pericardial effusion. CONCLUSIONS indication: stroke r/o with Bubble study LV appears normal with EF 55-60%. Diastolic Dysfunction I & mild LVH present. RV appears normal with RVSP 22 mmHg. IAS is normal to color flow Doppler and agitated saline imaging. 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 Nany Philip (Electronically Signed) Final Date: 13 November 2024 17:56
[2024-11-13] MEDS: ASPIRIN EC 81 MG TABEC PO (12:35)
--- NOTE | 2024-11-13 14:42 | ESPR_ITS ---
<Statement entered by Carissa Garcia MD - 11/13/24 22:03> Patient was seen and examined by me personally. I have directly supervised and reviewed documentation by the team resident and agree with its findings with any exceptions or additional findings as below. Plan of care was discussed with the attending, Dr. Pugh. Overnight admission. Patient is a 79-year-old female with past medical history of CVA in 2014 and hypertension who initially came to the ED after she experienced numbness on her face associated with difficulty finding words and dizziness after she took a teaspoon of promethazine. She was subsequently admitted for stroke rule out. When evaluated at bedside this morning the patient reported complete resolution of symptoms. She appeared to have normal speech. MRI today revealed no acute infarct, only old infarct right caudate nucleus and prominent chronic microvascular white matter change. Echo is pending. Will await Neurology recommendations as well. As imaging was negative for acute stroke the patient's home metoprolol XL 100 mg daily was resumed for BP control. Carissa Garcia, PGY-2 Documentation for date of: 11/13/24 Subjective Subjective Interval history: 11/13/2024: Overnight admission for stroke rule out; moreover, 79-year-old female with past medical history of CVA in 2014 and hypertension presented with left- sided facial numbness and slurred speech. CT head negative, CTA of the head and neck showed thyroid nodules but no intracranial process. Patient seen and assessed this morning denies having any concerning symptoms; moreover, she does have a low-grade fever but denies having any urinary tract symptoms or shortness of breath. Patient was given x 1 dose of Rocephin during admission and we will continue to monitor for any acute changes. MRI of brain shows no acute hemorrhage, an old infarct in the right caudate nucleus, chronic microvascular white matter changes and no acute infarct. Exam Vital Signs Temp Pulse Resp BP Pulse Ox O2 Del Method 100.5 F H 109 H 17 153/80 H 97 Room Air 11/13/24 12:00 11/13/24 12:00 11/13/24 12:00 11/13/24 12:00 11/13/24 12:11/13/24 12:00 Narrative Exam Physical Exam: GENERAL: Awake, answering questions appropriately, appears stated age HEENT: NC/AT. Moist mucosa. PERRLA/EOMI. CARDIO: Heart RRR, no obvious murmurs, no JVD. PULM: No coughing or visible SOB. Lungs CTA B/L. GI: Abdomen soft, NT/ND, +BS. SKIN/MSK/EXT: No wounds/discoloration/rashes/edema/amputations noted. +Pedal pulses present B/L. NEURO: Oriented x3, no focal neurological disorders noted. Objective Labs 11/14/24 04:57 11/14/24 04:57 Labs: Laboratory Results - last 24 hr 11/13/24 11/13/24 11/13/24 00:45 00:48 05:20 WBC 6.0 5.4 RBC 4.62 4.29 Hgb 14.1 13.1 Hct 42.3 38.4 MCV 92 90 MCH 30.5 30.5 MCHC 33.3 34.1 RDW Std Deviation 46.2 44.5 Plt Count 231 162 D Neut % (Auto) 69 60 Lymph % (Auto) 15 19 [place] % (Auto) 15 H 19 H Eos % (Auto) 1 1 Baso % (Auto) 1 1 Neut # (Auto) 4.1 3.2 Lymph # (Auto) 0.9 L 1.0 [place] # (Auto) 0.9 H 1.0 H Eos # (Auto) 0.1 0.0 Baso # (Auto) 0.0 0.1 Immature Gran # (Auto) 0.01 H 0.02 H Absolute Nucleated RBC 0.00 0.00 Immature Gran % 0 0 Nucleated RBC % 0 0 PT 11.5 INR 1.1 APTT 27.2 Sodium 141 140 Potassium 3.8 3.6 Chloride 105 106 Carbon Dioxide 26.1 25.3 Anion Gap 10 9 BUN 15 14 Creatinine 1.2 1.0 Estim Creat Clear Calc 42.2 L 50.6 L eGFR 46 L 58 L BUN/Creatinine Ratio 13 14 Glucose 93 89 Calculated Osmolality 282 278 Calcium 10.6 9.8 Corrected Calcium 10.6 H 9.8 Magnesium 1.8 1.8 Total Bilirubin 0.7 0.5 AST 26 21 ALT 23 19 Alkaline Phosphatase 139 H 121 H Troponin I < 0.020 B-Natriuretic Peptide 90 Total Protein 7.5 6.5 Albumin 5.2 H 4.3 D Globulin 2.3 2.2 L Albumin/Globulin Ratio 2.3 H 2.0 Triglycerides 68 Cholesterol 86 L LDL Cholesterol, Calc 24 HDL Cholesterol 48 Cholesterol/HDL Ratio 1.8 L TSH 1.73 Ur Collection Type Clean Catch Urine Color Yellow Urine Clarity Turbid A Urine pH 6.0 Ur Specific [place] 1.031 Urine Protein 2+ A Urine Glucose (UA) Negative Urine Ketones Trace Urine Blood Negative Urine Nitrite Negative Urine Bilirubin Negative Urine Urobilinogen (Auto) 3.0 Ur Leukocyte Esterase Positive Urine RBC 7 H Urine WBC 13 H Ur Squamous Epith Cells 10 H Urine Bacteria Rare Hyaline Casts < 1 Quality Measures Quality Measures none Advance care planning discussed with:: patient Assessment & Plan Assessment Current Active Medications: Generic Name Dose Route Start Last Admin Trade Name Freq PRN Reason Stop Dose Admin Acetaminophen 650 mg 11/13/24 04:56 Acetaminophen 325 Mg Tablet PO 12/13/24 04:55 Q6H PRN Fever >101.5 Aspirin 81 mg 11/13/24 09:00 11/13/24 12:35 Aspirin Ec 81 Mg Tabec PO 12/13/24 08:59 81 mg QDAY GEORGINA Administration Atorvastatin Calcium 40 mg 11/13/24 21:00 Atorvastatin Calcium 20 Mg Tablet PO 12/13/24 20:59 HS GEORGINA Heparin Sodium (Porcine) 5,000 unit 11/13/24 06:00 11/13/24 13:54 Heparin Sod Inj 5000 Unit/Ml Vial SC 11/27/24 05:59 5,000 unit Q8HR GEORGINA Administration Labetalol HCl 10 mg 11/13/24 10:37 Labetalol Inj 5 Mg/Ml Vial 20 Ml IVP 12/14/24 05:02 Q2H PRN BP >220/120mmHg Ondansetron HCl 4 mg 11/13/24 04:56 Ondansetron Inj 2 Mg/Ml Inj 2 Ml IV 12/13/24 04:55 Q6H PRN NAUSEA OR VOMITING Protocol Oxycodone/Acetaminophen 1 tab 11/13/24 04:56 Oxycodone/Apap 5/325 Tablet PO 11/18/24 04:55 Q6H PRN PAIN SCALE 4-6 (Moderate Plan 79-year-old female patient with past medical history of CVA in 2014, hypertension, came to the ED after she experienced numbness on her face associated with difficulty finding words and dizziness after she took a teaspoon of promethazine. Patient was admitted for stroke rule out. #Acute encephalopathy, likely secondary to medication #Ischemic stroke ruled out #Medication side effect #History of CVA in 2015 complicated by recurrent falls since that time Per signout; patient started developing slurred speech and facial numbess after taking 1 year old promethazine at home Patient was improving from URTI over the past 5 days or so but decided to try promethazine when she developed new symptoms Brain CT scan was negative for any hemorrhage or mass effect CTA Head/Neck showed: No significant neck arterial stenoses and no cerebral large vessel arterial occlusions or thrombus Consultation to the teleneurologist; recommended to admit the patient for stroke workup NIHSS of 0 EKG did not show any arrhythmia or ischemic changes Consulted neurologist Dr Guadarrama; appreciate recommendations MRI Brain showed: No acute hemorrhage mass effect or midline shift, old infarct right caudate nucleus, and prominent chronic microvascular white matter change. No acute infarct Passed swallow evaluation Plan: On aspirin 81 mg p.o. daily and atorvastatin 40 mg p.o. at bedtime Discontinued permissive hypertension parameters ECHO w/bubble taken - pending read PT eval pending Will follow neurology recommendations #Hypertension Patient has history of high blood pressure and takes home amlodipine 5 mg p.o. daily, metoprolol succinate 100 mg p.o. daily and benazepril 20 mg p.o. daily Presented to the hospital in hypertensive emergency with systolic blood pressure in the low 200s Permissive hypertension was kept since there was suspicion for stroke As above, MRI brain rules out any acute infarct or bleeding Plan: Discontinued as needed labetalol Resumed metoprolol succinate 100 mg p.o. daily Will consider resuming rest of home medications when appropriate #Febrile Patient spiked a low-grade fever 101.3 to 100.5 Patient is asymptomatic other than mild headache, denies dysuria/increase urinary frequency, shortness of breath or generalized pain No significant skin findings noted WBC 5.4, U/A unremarkable on admission and CXR did not show any active disease process Plan: Will continue to monitor Tylenol to be given #Thyroid Nodules As seen on CTA Head/Neck TSH 1.73 Plan: Follow-up with outpatient sonography Hospital Management: Diet: Cardiac Lines: PIV Bowel: Senna GI prophylaxis: Protonix DVT prophylaxis: Heparin subcu Dispo: Telemetry, pending neuro recs Code: Full Patient seen and assessed with attending Dr. Pugh and senior resident Dr. Radha Diana, PGY-1 Attending Provider Attestation/Addendum I have examined the patient, reviewed labs and imaging findings, discussed the case with the resident(s), and reviewed entered orders. I agree with the plan of care as outlined in this note, with these additional summaries/recommendations: Patient seen at bedside. Patient admitted overnight for CVA rule out. Today patient's only complaint is mild to moderate frontal headache. CTA was negative for LVO or thrombus. MRI completed which was negative for acute infraction but did reveal old infract right caudate nuclear this. Acute CVA ruled out. Patient's symptoms on admission most likely secondary to medication from promethazine +/- hypertensive emergency. Since acute CVA has been ruled out we will start to treat patient's blood pressure. We will adjust antihypertensive regimen as needed. Patient's cholesterol is well-controlled. Pending physical therapy and in-house neurology evaluation. Anticipate discharge in the next 24 to 48 hours. Patient updated on the plan and in agreement. Repeat hematology and chemistry panel in AM. Dr. Keaton MD
[2024-11-13] MEDS: METOPROLOL SUCCINATE XL 25 MG TABCR 100 MG PO (18:02)
--- NOTE | 2024-11-13 21:59 | PD.VPROG1 ---
Telemedicine visit statement This visit was conducted with the use of phone was obtained on 11/13/24. Documentation for date of: 11/13/24 Subjective Subjective Interval history: Patient is in telemetry. No new symptoms reported. No complaints of dizziness Virtual exam Vital Signs Temp Pulse Resp BP Pulse Ox O2 Del Method 98.5 F 84 21 H 134/85 H 97 Room Air 11/13/24 20:00 11/13/24 20:00 11/13/24 20:00 11/13/24 20:00 11/13/24 20:00 11/13/24 20:00 Objective Labs 11/13/24 05:20 11/13/24 05:20 Labs: Laboratory Results - last 24 hr 11/13/24 11/13/24 11/13/24 00:45 00:48 05:20 WBC 6.0 5.4 RBC 4.62 4.29 Hgb 14.1 13.1 Hct 42.3 38.4 MCV 92 90 MCH 30.5 30.5 MCHC 33.3 34.1 RDW Std Deviation 46.2 44.5 Plt Count 231 162 D Neut % (Auto) 69 60 Lymph % (Auto) 15 19 [place] % (Auto) 15 H 19 H Eos % (Auto) 1 1 Baso % (Auto) 1 1 Neut # (Auto) 4.1 3.2 Lymph # (Auto) 0.9 L 1.0 [place] # (Auto) 0.9 H 1.0 H Eos # (Auto) 0.1 0.0 Baso # (Auto) 0.0 0.1 Immature Gran # (Auto) 0.01 H 0.02 H Absolute Nucleated RBC 0.00 0.00 Immature Gran % 0 0 Nucleated RBC % 0 0 PT 11.5 INR 1.1 APTT 27.2 Sodium 141 140 Potassium 3.8 3.6 Chloride 105 106 Carbon Dioxide 26.1 25.3 Anion Gap 10 9 BUN 15 14 Creatinine 1.2 1.0 Estim Creat Clear Calc 42.2 L 50.6 L eGFR 46 L 58 L BUN/Creatinine Ratio 13 14 Glucose 93 89 Calculated Osmolality 282 278 Calcium 10.6 9.8 Corrected Calcium 10.6 H 9.8 Magnesium 1.8 1.8 Total Bilirubin 0.7 0.5 AST 26 21 ALT 23 19 Alkaline Phosphatase 139 H 121 H Troponin I < 0.020 B-Natriuretic Peptide 90 Total Protein 7.5 6.5 Albumin 5.2 H 4.3 D Globulin 2.3 2.2 L Albumin/Globulin Ratio 2.3 H 2.0 Triglycerides 68 Cholesterol 86 L LDL Cholesterol, Calc 24 HDL Cholesterol 48 Cholesterol/HDL Ratio 1.8 L TSH 1.73 Ur Collection Type Clean Catch Urine Color Yellow Urine Clarity Turbid A Urine pH 6.0 Ur Specific [place] 1.031 Urine Protein 2+ A Urine Glucose (UA) Negative Urine Ketones Trace Urine Blood Negative Urine Nitrite Negative Urine Bilirubin Negative Urine Urobilinogen (Auto) 3.0 Ur Leukocyte Esterase Positive Urine RBC 7 H Urine WBC 13 H Ur Squamous Epith Cells 10 H Urine Bacteria Rare Hyaline Casts < 1 Assessment & Plan Problem List (1) Dizziness: Status: Acute Assessment and plan: Resolved. Reassurance given to the patient regarding the negative MRI for acute infarction. Old infarct in the right caudate nucleus and prominent chronic white matter changes consistent with underlying small vessel disease. Echocardiogram: LV appears normal with EF 55-60%. Diastolic Dysfunction I & mild LVH present. RV appears normal with RVSP 22 mmHg. IAS is normal to color flow Doppler and agitated saline imaging. 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 Continue with aspirin and statin (2) Acute UTI: Status: Acute Assessment and plan: Urine analysis showed WBCs, epithelial cells suggestive of contamination (3) Old cerebrovascular accident (CVA) without late effect: Status: Acute Assessment and plan: Statin. No residual deficit (4) Hypertensive urgency: Status: Resolved Assessment and plan: Continue with the home meds
[2024-11-13] MEDS: ATORVASTATIN CALCIUM 20 MG TABLET 40 MG PO (22:00)
[2024-11-14] VITALS (7 sets, daily range): BP systolic 120–157; BP diastolic 65–91; PULSE 70–86; RESP 14–92; TEMP 36.7–37.4; O2SAT 93–97
[2024-11-14] MEDS: HEPARIN SOD INJ 5000 UNIT/ML VIAL SC (05:12)
[2024-11-14 05:23] LABS: Basophils % (Auto) 1 % (0-2.5); Eosinophils # (Auto) 0.1 Thou/mm3 (0.0-0.5); Eosinophils % (Auto) 3 % (0-10); Hemoglobin 13.1 g/dL (12.0-16.0); Immature Granulocytes % (Auto) 0 % (0-0); Immature Granulocytes Auto 0.01 Thou/mm3 (0.00-0.00); Lymphocytes # (Auto) 1.3 Thou/mm3 (1.0-4.8); Lymphocytes % (Auto) 31 % (10-50); Mean Corpuscular HGB Conc 33.6 g/dl (31.0-37.0); Mean Corpuscular Hemoglobin 30.5 pg (25.0-35.0); Mean Corpuscular Volume 91 fL (80-100); Monocytes # (Auto) 0.9 Thou/mm3 (0.0-0.8); Monocytes % (Auto) 21 % (0-12); Neutrophils # (Auto) 1.9 Thou/mm3 (1.8-7.7); Neutrophils % (Auto) 45 % (37-80); Nucleated Red Blood Cell % 0 /100 WBC (0); Platelet Count 182 Thou/mm3 (140-440); White Blood Count 4.3 Thou/mm3 (3.6-11.0)
[2024-11-14 05:46] LABS: Alanine Aminotransferase 13 U/L (10-49); Albumin/Globulin Ratio 1.8 (1.2-2.2); Alkaline Phosphatase 109 U/L (46-116); Anion Gap 8 (7-16); Aspartate Amino Transferase 21 U/L (0-34); BUN/Creatinine Ratio 16 Ratio (12-20); Bilirubin,Total 0.5 mg/dL (0.3-1.2); Blood Urea Nitrogen 19 mg/dL (9-23); Calcium 9.4 mg/dL (8.3-10.6); Calcium (Corrected) 9.4 mg/dL (8.5-10.1); Chloride 106 mMol/L (98-107); Creatinine (Component) 1.2 mg/dL (0.6-1.3); Estimated Creatinine Clearance 42.3 mL/min (>60); Globulin 2.2 gm/dL (2.3-3.5); Glucose 95 mg/dL (74-106); Magnesium 2.1 mg/dL (1.6-2.6); Osmolality,Calculated 283 (275-295); Phosphorous 3.9 mg/dL (2.4-5.1); Potassium 4.1 mMol/L (3.4-5.1); Sodium 141 mMol/L (136-145); Total Protein 6.2 gm/dL (5.7-8.2); eGFR 46 See Note
[2024-11-14] MEDS: METOPROLOL SUCCINATE XL 25 MG TABCR 100 MG PO (08:35)
[2024-11-14] MEDS: ASPIRIN EC 81 MG TABEC PO (08:35)
[2024-11-14] MEDS: SENNA TABLET 1 TAB PO (08:36)
--- NOTE | 2024-11-14 11:57 | PC.SS ---
Follow up note: Pt is d/c for today. SS confirmed d/c plan to return home. Pt states her son will provide transportation. SS was informed by DOLLY PUSHER pt is requiring clothes. SS provided pt with long sleeve thermal shirt, shorts, and underwear.
--- NOTE | 2024-11-14 12:54 | PC.SS ---
SS met with patient regarding her d/c plan.? Pt is alert/oriented.? Pt was admitted for Stroke Rule Out.? Pt confirmed demographic and contact information is correct on facesheet.? Pt resides with alone.? Pt ambulates independently without assistance or DME.? Pt is ok with all ADLs.? Pt named her son, Rick Gillespie medical decision maker if she is unable.? SS provided verbal d/c options.? Patient?s choice is to return home upon d/c.? Pt states not diabetic and is not on dialysis.? Pt states she follows up with PCP every 3 months.? Pt states her son, Rick will provide transportation D/C plan:? Return home Next of Kin:? ?Rick Gillespie, son, phone# [phone] PCP:? Dr. Izaiah Felder Address:? Correct on facesheet
--- NOTE | 2024-11-14 14:03 | PD.RESDS ---
Planned Discharge Date 11/14/24 DS: Providers Provider Date of admission: 11/13/24 04:57 Primary care physician: Izaiah Felder MD Admitting Provider: Erna Moore MD Attending Provider on Admission: Elieser Pugh MD Consults: 11/13/24 01:44 Consult to Neurology / Tele-Neurology Routine Comment: Consulting Provider: [facility] 11/13/24 05:01 Consult to Neurology / Tele-Neurology Stat Comment: Stroke rule out Consulting Provider: Salomón Guadarrama PT [Referral Physical Therapy] Routine Comment: Physician Instructions: Attending Provider on DC: Toñito Diana MD Discharging Provider: Toñito Diana MD DS: Diagnosis Problem List Completed Was Problem List Reviewed/Reconciled?: Yes Hospital Course Hospital Course Hospital course: 71-year-old female with past medical history of CVA in 2014, hypertension came to the ED on 11/13/2024 when she experienced numbness of her face along with slurred speech. Patient apparently was taking promethazine cough syrup as she was getting over a upper respiratory tract infection which was slowly improving. In the ED, patient hypertensive with systolic blood pressure initially in the 160s then spiking up to 200s, heart rate in the 90s, respiratory rate 20 and saturating 93 on room air. Labs are pertinent for normal troponin and BNP and brain CT was negative for any hemorrhage, CTA of the head and neck showed thyroid nodules but no intracranial process. Teleneurology scored the patient NIHSS score of 0 but recommended MRI brain to follow-up on. Patient was admitted for stroke rule out and neurology was consulted. Patient's MRI brain showed old infarct in the right caudate nucleus and prominent chronic white matter changes consistent with underlying small vessel disease and echo with bubble study was negative; however, patient has diastolic dysfunction x 1 and mild LVH was present. Upon reassessment on the following days, patient was asymptomatic and did not have any focal neurologic deficits. Patient's acute encephalopathy was likely secondary to medication side effect; however, patient knows to keep track of her blood pressure and follow-up with PCP with the following strict instructions. Continue taking all your home medications as prescribed. Follow-up with your PCP within 1-2 to weeks. Your echocardiogram results showed Grade I Diastolic Dysfunction, ask your PCP to monitor your heart and refer to cardiology. If your symptoms worsen or if you develop new chest pain, shortness of breath, headache or dizziness - please come back to the ED immediately. Hospital Diagnosis: #Acute encephalopathy, likely secondary to medication #Ischemic stroke ruled out #Medication side effect #History of CVA in 2015 complicated by recurrent falls since that time #Hypertension #Thyroid Nodules Toñito Diana, PGY-1 Status at Discharge Overall status at discharge: patient is progressing back to baseline Time Spent with Patient Time attestation: Total time spent providing and/or coordinating discharge services: 45 minutes Time spent: Greater than 30 minutes Exam Vital Signs Temp Pulse Resp BP Pulse Ox O2 Del Method 99.2 F 74 22 H 133/84 H 93 L Room Air 11/14/24 13:38 11/14/24 13:38 11/14/24 13:38 11/14/24 13:38 11/14/24 13:38 11/14/24 13:38 Narrative Exam Physical Exam: GENERAL: Awake, answering questions appropriately, appears stated age HEENT: NC/AT. Moist mucosa. PERRLA/EOMI. CARDIO: Heart RRR, no obvious murmurs, no JVD. PULM: No coughing or visible SOB. Lungs CTA B/L. GI: Abdomen soft, NT/ND, +BS. SKIN/MSK/EXT: No wounds/discoloration/rashes/edema/amputations noted. +Pedal pulses present B/L. NEURO: Oriented x3, no focal neurological disorders noted. Discharge Plan Plan Patient Disposition: HOME (Self Care) Care Plan Goals: Continue taking all your home medications as prescribed. Follow-up with your PCP within 1-2 to weeks. Your echocardiogram results showed Grade I Diastolic Dysfunction, ask your PCP to monitor your heart and refer to cardiology. If your symptoms worsen or if you develop new chest pain, shortness of breath, headache or dizziness - please come back to the ED immediately. Prescriptions/Referrals Prescriptions/Med Rec: Continued acetaminophen [Tylenol] 325 mg Tablet 650 mg PO Q12H atorvastatin 20 mg Tablet 20 mg PO QPM metoprolol succinate 100 mg Tablet Extended Release 24 Hr 100 mg PO QDAY amlodipine 5 mg Tablet 5 mg PO QDAY allopurinol 100 mg Tablet 100 mg PO QDAY aspirin 81 mg Tablet,Delayed Release (/Ec) 81 mg PO DAILY benazepril 20 mg Tablet 20 mg PO QDAY duloxetine 60 mg Capsule,Delayed Release(Dr/Ec) 60 mg PO QDAY famotidine 20 mg Tablet 20 mg PO QDAY Referrals: Izaiah Felder MD [Primary Care Provider] - Patient/Caregiver Discharge Instructions Education Materials: Heart Failure Signs of Flare-Up, Heart Failure: Evaluating Your Heart Print Language: Romanian Stand Alone Forms: Julienne Award Info., Patient Portal Info Letter Discharge Order Discharge Orders: Discharge (Routine); Ordered 11/14/24 Ordered By: Toñito Diana Quality Discharge Quality Measures VTE prophylaxis MD Attestestation MD Attestation I have examined the patient, reviewed labs and imaging findings, discussed the case with the resident(s), and reviewed entered orders. I agree with the plan of care as outlined in this note. Dr. Keaton MD
== END 2024-11-14 13:15 | disposition home or self-care (01) | DRG 92 ==
LOC: SERX 11-13 03:14 → SERHOLD 11-13 05:16 → S2NX 11-13 08:40
PROVIDERS: Physician Assistant; Student in an Organized Health Care Education/Training Program; Admitting Provider Internal Medicine; Emergency Provider Emergency Medicine; PCP Internal Medicine; Visit Provider Student in an Organized Health Care Education/Training Program
DX: G92.8 Other toxic encephalopathy (principal); I16.1 Hypertensive emergency; I69.354 Hemiplegia and hemiparesis following cerebral infarction affecting left non-dominant side; R47.81 Slurred speech; I10 Essential (primary) hypertension; E78.5 Hyperlipidemia, unspecified; I48.91 Unspecified atrial fibrillation; R20.0 Anesthesia of skin; E04.2 Nontoxic multinodular goiter; R42 Dizziness and giddiness; Z96.653 Presence of artificial knee joint, bilateral; Z60.2 Problems related to living alone; R29.6 Repeated falls; Z79.899 Other long term (current) drug therapy; Z79.82 Long term (current) use of aspirin; T43.3X5A Adverse effect of phenothiazine antipsychotics and neuroleptics, initial encounter
CPT/HCPCS: 36415; 70450; 70496; 70498; 70544; 71045; 80053; 80061; 80307; 81001; 83735; 83880; 84100; 84443; 84484; 85025; 85610; 85730; 87086; 87400; 87811; 92610; 93005; 93306; 96365; 96366; 96367; 96372; 97162; 99291; A4649; J0360; J0696; J1643; J3475; J7030; J7050; Q9967; A9270

== ENCOUNTER → 2025-01-01 | Outpatient (CLI) | payer MEDICARE, OTHER, SELFPAY ==
--- NOTE | 2025-01-01 10:39 | XR_ITS ---
Examination: Lumbar spine, 5 views Technique: Lumbar spine AP, lateral, coned lateral lower lumbar spine, bilateral obliques 5 views Exam date and time: January 01, 2025 11:10 AM INDICATIONS: Low back pain several years. FINDINGS: Severe osteopenia Severe lumbar dextroscoliosis Advanced right hip joint narrowing Advanced diffuse lumbar degenerative disc disease Grade 1 anterolisthesis L4 on L3 Prominent lumbar spondylosis Chronic wedging, osteoporotic multiple thoracic and lumbar vertebral bodies No acute lumbar fracture IMPRESSION: Severe lumbar dextroscoliosis Advanced diffuse lumbar degenerative disc disease
== END | disposition home or self-care (01) ==
LOC: CDIM 10:23
PROVIDERS: PCP Internal Medicine; Referring Provider Internal Medicine; Visit Provider Internal Medicine
DX: M51.360 Other intervertebral disc degeneration, lumbar region with discogenic back pain only (principal); M41.86 Other forms of scoliosis, lumbar region
CPT/HCPCS: 72110